=== PATIENT | male | born 1950 | race Caucasian/White ===

== ENCOUNTER → 2021-11-06 10:15 | Outpatient (BNVA) | payer MEDICARE, MEDICAID, SELFPAY | PROVIDERS: PCP Internal Medicine; Visit Provider Nurse Practitioner Family | DX: G20 Parkinson's disease (principal); R13.10 Dysphagia, unspecified; L98.9 Disorder of the skin and subcutaneous tissue, unspecified | CPT/HCPCS: 99212 ==

== ENCOUNTER → 2022-01-17 09:54 | Outpatient (BNVA) | payer MEDICARE, MEDICAID, SELFPAY | PROVIDERS: PCP Internal Medicine; Visit Provider Nurse Practitioner Family | DX: G20 Parkinson's disease (principal); R13.10 Dysphagia, unspecified; R49.8 Other voice and resonance disorders; Z79.899 Other long term (current) drug therapy | CPT/HCPCS: 99212 ==

== ENCOUNTER → 2022-04-24 10:17 | Outpatient (BNVA) | payer MEDICARE, MEDICAID, SELFPAY | PROVIDERS: PCP Internal Medicine; Visit Provider Nurse Practitioner Family | DX: G20 Parkinson's disease (principal); R13.10 Dysphagia, unspecified; R49.8 Other voice and resonance disorders; K59.00 Constipation, unspecified | CPT/HCPCS: 99212 ==

== ENCOUNTER → 2022-12-01 10:55 | Outpatient (BNVA) | payer MEDICARE, MEDICAID, SELFPAY | PROVIDERS: PCP Internal Medicine; Visit Provider Nurse Practitioner Family | DX: G20 Parkinson's disease (principal); R13.10 Dysphagia, unspecified; G47.19 Other hypersomnia | CPT/HCPCS: 99212 ==

== ENCOUNTER 2023-06-09 09:39 | Outpatient (AMB) | payer MEDICARE, MEDICAID, SELFPAY ==
--- NOTE | 2023-06-09 09:47 | MHC.OFFVIS ---
Intake Vital Signs 06/09/23 09:48 Height 5 ft 3 in Weight 151 lb 4 oz BMI 26.8 BP 124/66 Blood Pressure Location Rt brachial Position Sitting Pulse 78 Pulse Source Pulse Oximeter Pulse Oximetry (%) 96 Oxygen Delivery Method Room Air Intake Visit Reasons: 6m f/u balance/tremors - Conf t/CW Intake Note: Pt presents to the office today for a 6 month follow up balance/tremors. Pts sister states there are good days and bad days with his balance. Pts sister states that sometimes he freezes and is unable to walk/move his legs but other days he balance is great. Pt sister is worried that he has been having trouble opening his eyes and actually has to use his hands to open his eyelids. Accompanied by: Sister Allergies No Known Allergies Allergy (Verified 06/09/23 09:49) Medication List - Last Reconciled 06/09/23 by MONICA Tovar amlodipine 5 mg PO DAILY atorvastatin 10 mg PO BEDTIME carbidopa-levodopa 25-100 mg 1.5 tabs at 8:30, 1 tab at 12:30pm, 1.5 tabs at 4:30pm, 1 tab at 8:30pm PO 4 times a day; 90 days cholecalciferol (vitamin D3) 50 mcg PO DAILY docusate sodium (Colace) 100 mg PO DAILY PRN finasteride 5 mg PO DAILY hydrochlorothiazide 12.5 mg PO DAILY non-adherent bandage Clean right thigh wounds with NS, apply scant amt bacitracin, f/b adaptic and dry gauze dressing, and hypafix type tape. Change daily and prn selegiline HCl 5 mg PO BID 30 days tamsulosin 0.4 mg PO BEDTIME HPI HPI Comments History of Present Illness Details 73-yr-old male presents for f/u visit, accompanied by his sister, who helps w/ history. Pt has had 3 recent hospitalizations. - Syncopal episode while he was sitting having his toe nails cut. He was found to be bradykinetis. His BB was stopped. He has had a recent holter monitor- results pending. - Pt was discharged home yesterday- a passerby called 911 upon pt sitting on the sidewalk, pt had been attempting to walk to the store and became tired so sat down. He will have home VNA, PT. Pt's current PD medication regimen: CD-LD 25-100mg 1.5, 1, 1.5, 1 tab. Selegeline 5mg q 12 hrs. He takes his meds at different times depending on when he wakes up. His meds can wear off. He is Ind w/ ADLs. He has difficulty keeping his eyes open. His voice can be soft. He denies orthostativ lightheadedness or dizziness. No hallucinations. He is having daytime sleepiness. He has good and bad days w/ walking- can have freezing at times. He has a walker at home, does not use. [facility] Medical History Skin lesion Surgical History No pertinent past surgical history Family History Mother Sleep apnea Father Sleep apnea Parkinson disease (Updated 06/09/23 @ 09:58 by Lauryn Leone MA) Household Members: None Housing: Apartment Alcohol intake: current Alcohol intake frequency: does not drink Patient Tobacco Use Status: Never used Tobacco Review of Systems Const All systems reviewed & are unremarkable except as noted in HPI and below Physical Exam Vital Signs: Last Vital Signs Pulse 78 06/09/23 09:48 BP 124/66 06/09/23 09:48 Pulse Ox 96 06/09/23 09:48 Oxygen Delivery Method Room Air 06/09/23 09:48 BMI result Body Mass Index 26.8 Const General: cooperative and no acute distress Resp Effort & Inspection: normal respiratory effort and able to speak in complete sentences Neuro Other: General: A&O Expression: Marked hypomimia, mild drooling Voice: Marked hypophonia Tremor: No significant tremor Tone: BUE rigdity Dyskinesia: None FFM: Bradykinesia Foot taps: Bradykinesia Gait: Slow to stand, slight stoop, no arm swing, short steps w/ narrow base, steady. Psych: Pleasant affect, cooperative Cognition: Bradyphrenia, but responses appropriate? Assessment & Plan Assessment & Plan (1) Parkinson's disease without dyskinesia: Code(s): G20.A1 - Parkinson's disease without dyskinesia, without mention of fluctuations (2) Hypophonia: Code(s): R49.8 - Other voice and resonance disorders (3) Constipation: Code(s): K59.00 - Constipation, unspecified (4) Dysphagia: Code(s): R13.10 - Dysphagia, unspecified (5) Excessive daytime sleepiness: Code(s): G47.19 - Other hypersomnia Plan Will adjust PD regimen in an attempt to improve on time and reduce pill burden. Hold Sinemet 25-100mg to 1.5-1-1.5-1. Hold Selegiline 5mg bid. Trial CD-LD ER 50-200mg qid (approx every 4-5 hrs). Trial Rasagiline 1mg qd Concur w/ eye exam- though I suspect eyelid closing is d/t PD off-time. Colace prn constipation. PT as ordered. Encouraged pt to edgar walker when outside of home. Future consideration- sleep study, Neupro patch- pt would need daily nurse visits. Medications: New rasagiline 1 mg PO DAILY 90 days 90 tabs 1RF carbidopa-levodopa 50-200 mg ER divide evenly over waking hours 1 tab PO QID 90 days 360 tabs 1RF Discontinued carbidopa-levodopa 25-100 mg Discontinued Reason: Doctor's Order 1.5 tabs at 8:30, 1 tab at 12:30pm, 1.5 tabs at 4:30pm, 1 tab at 8:30pm PO 4 times a day; 90 days 450 tabs 3RF selegiline HCl Discontinued Reason: Doctor's Order 5 mg PO BID 30 days 60 caps 6RF Coding Level of Care Code Est Pt Level 4 (48209) Diagnoses Parkinson's disease without dyskinesia G20.A1 Hypophonia R49.8 Constipation K59.00 Dysphagia R13.10 Excessive daytime sleepiness G47.19
[2023-06-09 09:48] VITALS: BP 124/66; PULSE 78; O2SAT 96; BMI 26.8
== END 2023-06-09 10:51 | disposition home or self-care (01) ==
PROVIDERS: Visit Provider Nurse Practitioner Family
DX: G20.A1 Parkinson's disease without dyskinesia, without mention of fluctuations (principal); R49.8 Other voice and resonance disorders; K59.00 Constipation, unspecified; R13.10 Dysphagia, unspecified; G47.19 Other hypersomnia
CPT/HCPCS: 99214

== ENCOUNTER → 2023-06-09 09:39 | Outpatient (BNVA) | payer MEDICARE, MEDICAID, SELFPAY | PROVIDERS: Visit Provider Nurse Practitioner Family | DX: G20.A1 Parkinson's disease without dyskinesia, without mention of fluctuations (principal); R49.8 Other voice and resonance disorders; R13.10 Dysphagia, unspecified; G47.19 Other hypersomnia; K59.00 Constipation, unspecified | CPT/HCPCS: 99212 ==

== ENCOUNTER 2023-07-21 06:29 | Outpatient (REF) | payer MEDICARE, MEDICAID, SELFPAY ==
[2023-07-21 06:32] LABS: MANUAL DIFF FLAG NO
[2023-07-21 06:44] LABS: Basophils Absolute Auto 0.1 X10*3/uL (0.0-0.2); Basophils Percent Auto 0.6 % (0-2); Eosinophils Absolute Auto 0.2 X10*3/uL (0.0-0.4); Eosinophils Percent Auto 2.8 % (0-4); Hematocrit 42.3 % (42.0-52.0); Hemoglobin 14.5 g/dl (14.0-18.0); Imm Gran Abs Auto 0.06 X10*3/uL (0.00-0.03); Imm Gran Pct Auto 0.7 % (0.0-0.4); Lymphocytes Absolute Auto 2.3 X10*3/uL (1.2-4.9); Lymphocytes Percent Auto 28.7 % (20-40); Mean Corpuscular HGB Conc 34.3 g/dl (31.0-36.0); Mean Corpuscular Hemoglobin 30.8 pg (27.0-33.0); Mean Corpuscular Volume 89.8 fL (80.0-98.0); Mean Platelet Volume 9.8 fL (9.4-12.4); Monocytes Absolute Auto 0.9 X10*3/uL (0.1-1.2); Monocytes Percent Auto 11.5 % (2-11); Neutrophils Absolute Auto 4.5 x10*3/uL (2.0-8.3); Neutrophils Percent Auto 55.7 % (45-73); Platelet Count 318 X10*3/uL (160-400); Red Blood Count 4.71 X10*6/uL (4.60-5.80); Red Cell Distribution Width 12.5 % (11.0-16.0); White Blood Count 8.1 X10*3/uL (4.8-10.8)
[2023-07-21 07:16] LABS: Alanine Aminotransferase 6 U/L (0-40); Albumin Level 3.8 g/dL (3.5-5.0); Alkaline Phosphatase 88 U/L (39-117); Anion Gap 13 (12-20); Aspartate Amino Transferase 18 U/L (5-37); Bilirubin Total 0.4 mg/dL (0.0-1.0); Blood Urea Nitrogen 19 mg/dL (9-16); Calcium 9.3 mg/dL (8.4-10.2); Carbon Dioxide 24 mmol/L (22-29); Chloride 106 mmol/L (96-108); Estimated Glomerular Filt Rate > 60; Glucose Random 77 mg/dL (60-115); Potassium 3.5 mmol/L (3.3-5.1); Sodium 139 mmol/L (135-145); Total Protein 7.2 g/dL (6.5-8.0)
== END 2023-07-21 06:30 | disposition home or self-care (01) ==
LOC: HO.MMNH1L 06:29
PROVIDERS: Visit Provider Family Medicine
DX: G20.C Parkinsonism, unspecified (principal); E46 Unspecified protein-calorie malnutrition; Z91.81 History of falling
CPT/HCPCS: 36415; 80053; 85025

== ENCOUNTER 2023-07-27 10:36 | Outpatient (REF) | payer MEDICARE, MEDICAID, SELFPAY ==
[2023-07-27 06:23] LABS: MANUAL DIFF FLAG NO
[2023-07-27 06:48] LABS: Basophils Absolute Auto 0.1 X10*3/uL (0.0-0.2); Eosinophils Absolute Auto 0.1 X10*3/uL (0.0-0.4); Hematocrit 39.7 % (42.0-52.0); Hemoglobin 13.6 g/dl (14.0-18.0); Imm Gran Abs Auto 0.02 X10*3/uL (0.00-0.03); Imm Gran Pct Auto 0.3 % (0.0-0.4); Lymphocytes Absolute Auto 2.4 X10*3/uL (1.2-4.9); Lymphocytes Percent Auto 34.1 % (20-40); Mean Corpuscular HGB Conc 34.3 g/dl (31.0-36.0); Mean Corpuscular Hemoglobin 31.1 pg (27.0-33.0); Mean Corpuscular Volume 90.8 fL (80.0-98.0); Monocytes Absolute Auto 0.7 X10*3/uL (0.1-1.2); Monocytes Percent Auto 9.6 % (2-11); Neutrophils Absolute Auto 3.7 x10*3/uL (2.0-8.3); Platelet Count 316 X10*3/uL (160-400); Red Blood Count 4.37 X10*6/uL (4.60-5.80); Red Cell Distribution Width 12.4 % (11.0-16.0)
[2023-07-27 07:04] LABS: Anion Gap 15 (12-20); Blood Urea Nitrogen 21 mg/dL (9-16); Calcium 9.2 mg/dL (8.4-10.2); Carbon Dioxide 26 mmol/L (22-29); Chloride 101 mmol/L (96-108); Estimated Glomerular Filt Rate > 60; Glucose Random 72 mg/dL (60-115); Potassium 3.6 mmol/L (3.3-5.1); Sodium 138 mmol/L (135-145)
== END 2023-07-27 10:37 | disposition home or self-care (01) ==
LOC: HO.MMNH1L 10:36
PROVIDERS: Visit Provider Family Medicine
DX: G20.A1 Parkinson's disease without dyskinesia, without mention of fluctuations (principal); E46 Unspecified protein-calorie malnutrition; Z91.81 History of falling
CPT/HCPCS: 36415; 80048; 85025

== ENCOUNTER 2023-07-31 05:49 | Outpatient (REF) | payer MEDICARE, MEDICAID, SELFPAY ==
[2023-07-31 05:51] LABS: MANUAL DIFF FLAG NO
[2023-07-31 06:07] LABS: Basophils Absolute Auto 0.1 X10*3/uL (0.0-0.2); Eosinophils Absolute Auto 0.2 X10*3/uL (0.0-0.4); Eosinophils Percent Auto 2.2 % (0-4); Hematocrit 43.9 % (42.0-52.0); Imm Gran Abs Auto 0.02 X10*3/uL (0.00-0.03); Imm Gran Pct Auto 0.2 % (0.0-0.4); Lymphocytes Absolute Auto 3.1 X10*3/uL (1.2-4.9); Lymphocytes Percent Auto 35.5 % (20-40); Mean Corpuscular HGB Conc 34.2 g/dl (31.0-36.0); Mean Corpuscular Hemoglobin 31.2 pg (27.0-33.0); Mean Corpuscular Volume 91.3 fL (80.0-98.0); Mean Platelet Volume 9.8 fL (9.4-12.4); Monocytes Absolute Auto 0.9 X10*3/uL (0.1-1.2); Monocytes Percent Auto 10.6 % (2-11); Neutrophils Absolute Auto 4.4 x10*3/uL (2.0-8.3); Neutrophils Percent Auto 50.5 % (45-73); Platelet Count 297 X10*3/uL (160-400); Red Blood Count 4.81 X10*6/uL (4.60-5.80); Red Cell Distribution Width 12.3 % (11.0-16.0); White Blood Count 8.7 X10*3/uL (4.8-10.8)
[2023-07-31 06:34] LABS: Anion Gap 14 (12-20); Blood Urea Nitrogen 16 mg/dL (9-16); Calcium 9.5 mg/dL (8.4-10.2); Carbon Dioxide 27 mmol/L (22-29); Chloride 104 mmol/L (96-108); Estimated Glomerular Filt Rate > 60; Glucose Random 85 mg/dL (60-115); Potassium 3.6 mmol/L (3.3-5.1); Sodium 141 mmol/L (135-145)
== END 2023-07-31 05:50 | disposition home or self-care (01) ==
LOC: HO.MMNH1L 05:49
PROVIDERS: Visit Provider Family Medicine
DX: G20.A1 Parkinson's disease without dyskinesia, without mention of fluctuations (principal); R27.8 Other lack of coordination
CPT/HCPCS: 36415; 80048; 85025

== ENCOUNTER 2023-08-03 07:27 | Outpatient (REF) | payer MEDICARE, MEDICAID, SELFPAY ==
[2023-08-03 06:32] LABS: MANUAL DIFF FLAG NO
[2023-08-03 07:01] LABS: Basophils Absolute Auto 0.1 X10*3/uL (0.0-0.2); Basophils Percent Auto 0.8 % (0-2); Eosinophils Absolute Auto 0.1 X10*3/uL (0.0-0.4); Eosinophils Percent Auto 2.2 % (0-4); Hematocrit 40.1 % (42.0-52.0); Hemoglobin 13.4 g/dl (14.0-18.0); Imm Gran Abs Auto 0.03 X10*3/uL (0.00-0.03); Imm Gran Pct Auto 0.5 % (0.0-0.4); Lymphocytes Absolute Auto 1.9 X10*3/uL (1.2-4.9); Lymphocytes Percent Auto 30.6 % (20-40); Mean Corpuscular HGB Conc 33.4 g/dl (31.0-36.0); Mean Corpuscular Hemoglobin 30.7 pg (27.0-33.0); Mean Corpuscular Volume 91.8 fL (80.0-98.0); Mean Platelet Volume 9.9 fL (9.4-12.4); Monocytes Absolute Auto 0.8 X10*3/uL (0.1-1.2); Neutrophils Absolute Auto 3.4 x10*3/uL (2.0-8.3); Neutrophils Percent Auto 53.9 % (45-73); Platelet Count 250 X10*3/uL (160-400); Red Blood Count 4.37 X10*6/uL (4.60-5.80); Red Cell Distribution Width 12.6 % (11.0-16.0); White Blood Count 6.3 X10*3/uL (4.8-10.8)
[2023-08-03 07:08] LABS: Anion Gap 14 (12-20); Blood Urea Nitrogen 17 mg/dL (9-16); Calcium 8.9 mg/dL (8.4-10.2); Carbon Dioxide 26 mmol/L (22-29); Chloride 102 mmol/L (96-108); Estimated Glomerular Filt Rate > 60; Glucose Random 83 mg/dL (60-115); Potassium 3.4 mmol/L (3.3-5.1); Sodium 139 mmol/L (135-145)
== END 2023-08-03 07:28 | disposition home or self-care (01) ==
LOC: HO.MMNH1L 07:27
PROVIDERS: Visit Provider Family Medicine
DX: G30.9 Alzheimer's disease, unspecified (principal); E46 Unspecified protein-calorie malnutrition; Z91.81 History of falling
CPT/HCPCS: 36415; 80048; 85025

== ENCOUNTER 2024-01-08 08:28 | Outpatient (AMB) | payer MEDICARE, MEDICAID, SELFPAY ==
--- NOTE | 2024-01-08 07:42 | MHC.OFFVIS ---
Vital Signs 01/08/24 08:50 Height 5 ft 3 in Weight 142 lb BMI 25.2 BP 112/74 Blood Pressure Location Rt brachial Position Sitting Pulse 63 Pulse Source Pulse Oximeter Pulse Oximetry (%) 96 Oxygen Delivery Method Room Air Intake Visit Reasons: 4 mo f/u Balance/Tremors-CONF Intake Note: Patient presents for four month follow up tremors Allergies No Known Allergies Allergy (Verified 01/08/24 08:55) HPI Comments Details: 73-yr-old male presents for f/u visit of Parkinson's. Pt is accompanied by his sister, who helps w/ history. Pt reports the following interval medical history changes since last visit here in May 2023: Pt's sister reports on October 16, 2023- pt had fallen in his apartment and was on the floor x's several hrs as he misdialed his siter's was dx'd w/ rhabdomylosis and PNA. He was admitted to [facility], and was discharged to [facility] where he had rehab and now is in LTC. 3 weeks ago, had hospitalization for PNA and parainfluenze. Since, pt has had recent fall and hit his head, had ER eval, head CT was normal. Pt's sister notes that pt does seem to be doing better now that he is taking his medications more regularly, however his doses are spread out every 6 hrs now, and he still has many PD s/s. He is taking a lot of salt w/ his meals- he feels this will reduce his urinary frequency.. He is scheduled for right hand surgery to help w/ finger contracture/posturing. w/ Dr Garcia at [facility]. Pt's current PD medication regimen: Rasagiline 1mg qd. CD-LD ER 50-200mg 1 tab q 6 hours (12am, 6am, 12pm, 6pm). Meal times are at 8:30, 12:30, 5:30. Pt reports: ADL's: He states he does not need help. But sister states he does need some help. Swallowing: on dysphagia diet, sister has cleared him to drink thin liquids as he does not like the thickened liquids. He does brush his teeth bid. Sister is trying to set up dentist appt. Cough: denies Drooling: does drool, this is also why he takes salt- he states Orthostatic lightheadedness: not noticed Constipation: denies Urinary symptoms: urinary frequency/urgency, states he uses the bathroom every 4 hours when he needs to. Has BPH. Tremor: denies Dyskinesia: denies Stiffness: Yes. Can have difficulty getting out of certain chairs. Gait changes: states he has not been walking as much Freezing: his sister notices this Falls: has had falls Mood: alright Hallucinations: denies Memory: LTM is better than STM. pt feels he is slower. Sleep: tends to sleep during the day- he has always ahd an erratic sleep schedule- he is often tired. Exercise: denies any usual exercise. [facility] Medical History Skin lesion Surgical History No pertinent past surgical history Family History Mother Sleep apnea Father Sleep apnea Parkinson disease Social History Household Members: None Housing: Apartment Alcohol intake: current Alcohol intake frequency: does not drink Patient Tobacco Use Status: Never used Tobacco Physical Exam Vital Signs: Last Vital Signs Pulse 63 01/08/24 08:50 BP 112/74 01/08/24 08:50 Pulse Ox 96 01/08/24 08:50 Oxygen Delivery Method Room Air 01/08/24 08:50 BMI result Body Mass Index 25.2 Const General: cooperative and no acute distress Resp Effort & Inspection: normal respiratory effort and able to speak in complete sentences Neuro Other: General: A&O x's 3, w/ some STM lapses and marked bradyphrenia Expression: Marked decreased expression and blink Voice: marked hypophonia, at times pt can project louder and more clearly for a few words. Tremor: Very mild RUE postural tremor Tone: BUE rigidity w/ right hand posturing/contracture. Dyskinesia: None FFM: Marked bardykinesia Foot taps: Marked bradykinesia Gait: Slow to stand, stoop in shoulder, but slight retropulsion, no arm swing, short steps w/ very low floor clearance. Psych: Pleasant and cooperative. Assessment & Plan Assessment & Plan (1) Parkinson's disease without dyskinesia: Code(s): G20.A1 - Parkinson's disease without dyskinesia, without mention of fluctuations Category: Medical (2) Hypophonia: Code(s): R49.8 - Other voice and resonance disorders Category: Medical (3) Dysphagia: Code(s): R13.10 - Dysphagia, unspecified Category: Medical (4) Contracture of right hand: Code(s): M24.541 - Contracture, right hand Category: Medical (5) Falls: Code(s): W19.XXXA - Unspecified fall, initial encounter Category: Medical Plan Increase CD-LD ER 50-200mg from 1 tab po q 6hrs to 1 tab po 5 x's per day at 7:30am, 11:30am, 4:30pm, 8:30pm, and 12am. (CD-LD should be taken at least 30-45 minutes prior to protein intake to optimize absorption). - in hopes this reduces hypophonia, bradyphrenia, bradykineisa, rigidity. And improves right hand mobility. - Reviewed common s/e's of increasing CD-LD including but not limited to- GI upset, orthostatic hypotension or lightheadedness, dyskinesias, hallucinations. Continue Rasagiline 1mg qd. Continue dysphagia diet w/ thin liquids. Encouraged pt to ensure good oral hygiene. Dental appt when able. Follow-up w/ Dr Howe, orthopedic hand specialist, as scheduled. Previous PD trials- CD-LD IR 25-100mg and Selegiline 5mg bid- ineffective, marked off-times. Future considerations- trying Rytary, adjuncting w/ neupro patch or dopamine agonist, We will f/u w/ pt/pt's sister in 2-3 weeks to check on pt's status before he undergoes right hand surgery. F/u in clinic in 6 months or sooner prn. Coding Level of Care Code Est Pt Level 4 (66409) Complex EM visit Add On G2211 Diagnoses Parkinson's disease without dyskinesia G20.A1 Hypophonia R49.8 Dysphagia R13.10 Contracture of right hand M24.541 Falls W19.XXXA
[2024-01-08 08:50] VITALS: BP 112/74; PULSE 63; O2SAT 96; BMI 25.2
== END 2024-01-08 09:54 | disposition home or self-care (01) ==
PROVIDERS: PCP Internal Medicine; Visit Provider Nurse Practitioner Family
DX: G20.A1 Parkinson's disease without dyskinesia, without mention of fluctuations (principal); R49.8 Other voice and resonance disorders; R13.10 Dysphagia, unspecified; M24.541 Contracture, right hand; R29.6 Repeated falls
CPT/HCPCS: 99214; G2211

== ENCOUNTER → 2024-01-08 08:28 | Outpatient (BNVA) | payer MEDICARE, MEDICAID, SELFPAY | PROVIDERS: PCP Internal Medicine; Visit Provider Nurse Practitioner Family | DX: G20.A1 Parkinson's disease without dyskinesia, without mention of fluctuations (principal); R49.8 Other voice and resonance disorders; R13.10 Dysphagia, unspecified; M24.541 Contracture, right hand; Z91.81 History of falling | CPT/HCPCS: 99212 ==

== ENCOUNTER 2024-05-21 15:29 | Emergency (ER) | payer MEDICARE, MEDICAID, SELFPAY ==
--- NOTE | ~2024-05-21 | CT_ITS ---
EXAMINATION CT HEAD WITHOUT CONTRAST CT CERVICAL SPINE WITHOUT CONTRAST CLINICAL INFORMATION: Fall, Parkinson's COMPARISON: None TECHNIQUE: CT of the head was performed without intravenous contrast. Reformatted axial, coronal, and sagittal images were reviewed. Then, multidetector CT of the cervical spine was performed without intravenous contrast. Reformatted axial, coronal and sagittal images were reviewed. This CT examination was performed using dose optimization techniques as appropriate, variously including the following: *Automated exposure control *Adjustment of mA and/or kV according to patient size (this includes techniques or standardized protocols for targeted exams where dose is matched to indication/reason for exam; i.e. extremities or head) *Use of iterative reconstruction technique DLP: 1105 mGy-cm FINDINGS: HEAD: No intracranial hemorrhage, extra-axial fluid collection, or midline shift is identified. Wise-white matter differentiation is preserved. Prominence of the cerebral sulci with commensurate ventriculomegaly consistent with age-related cerebral volume loss. Periventricular white matter hypoattenuation consistent with chronic small vessel ischemic disease. Basal cisterns are within normal limits. Posterior fossa arachnoid cysts. Paranasal sinuses are clear. Mastoid air cells and middle ear cavities are clear. No acute calvarial fractures. CERVICAL SPINE: There is no fracture, malalignment or prevertebral soft tissue abnormality seen in the cervical spine. There is no abnormal widening of the predental space, separation of the lateral masses of C1 or facet joint distraction. Vertebral body and intervertebral disc height are normal. Multilevel degenerative changes are present throughout the cervical spine resulting in varying levels of neural foraminal stenosis, worst at C3-4. The visualized portions of the lung parenchyma is unremarkable. CT/CT cervical spine wo IV con IMPRESSION: CT HEAD: 1. No acute intracranial abnormality. 2. Chronic small vessel ischemic disease and age-related cerebral volume loss. 3. Posterior fossa arachnoid cyst. CT CERVICAL SPINE: 1. No acute fracture or malalignment of the cervical spine. 2. Multilevel degenerative changes, worst at C3-4. Electronically signed by: Benja Arroyo DO 05/21/2024 05:55 PM EDT
[2024-05-21 15:33] VITALS: BP 96/68; PULSE 70; O2SAT 96
[2024-05-21 15:37] VITALS: BP 105/69; PULSE 63; RESP 18; O2SAT 93; BMI 20.8
--- NOTE | 2024-05-21 16:51 | ED_ITS ---
HPI - Fall General Chief Complaint: Fall Stated Complaint: fall Time Seen by Provider: 05/21/24 16:19 Source: family and EMS Mode of arrival: EMS Limitations: other ( fairly advanced Parkinson's) History of Present Illness ED Provider: Dr. Joana Palencia HPI Narrative: patient comes to the emergency room via ambulance from a longterm, [facility]. According to the patient's sister who is at bedside, patient had an unwitnessed fall. at baseline, patient is able to speak but very softly, mostly answering yes no questions. Accordin to the patient's sister, patient is supposed to get up with his walker and most of the time he does not use it. Also, seems that today his bathroom was clogged and the water was spilling, unclear if the floor was Still wet when he Fell. Patient denies headache neck pain chest pain shortness of breath hip pain or lower extremity pain Related Data Home Medications ?Medication ?Instructions ?Recorded ?Confirmed finasteride 5 mg tablet 5 mg PO DAILY 11/06/21 06/09/23 tamsulosin 0.4 mg capsule 0.4 mg PO BEDTIME 11/06/21 06/09/23 cholecalciferol (vitamin D3) 50 50 mcg PO DAILY 01/17/22 06/09/23 mcg (2,000 unit) capsule docusate sodium 100 mg capsule 100 mg PO DAILY PRN 12/01/22 06/09/23 (Colace) amlodipine 5 mg tablet 5 mg PO DAILY 06/09/23 06/09/23 atorvastatin 10 mg tablet 10 mg PO BEDTIME 06/09/23 06/09/23 hydrochlorothiazide 12.5 mg capsule 12.5 mg PO DAILY 06/09/23 06/09/23 acetaminophen 325 mg capsule 325 mg PO QID PRN 01/08/24 bisacodyl 10 mg rectal suppository 10 mg UT DAILY PRN 01/08/24 trazodone 50 mg tablet 25 mg PO DAILY 01/08/24 Previous Rx's ?Medication ?Instructions ?Recorded non-adherent bandage 3 X 3 #30 ea 11/06/21 carbidopa ER 50 mg-levodopa 200 mg 1 tab PO QID 90 days #360 tabs 06/09/23 tablet,extended release rasagiline 1 mg tablet 1 mg PO DAILY 90 days #90 tabs 11/30/23 Allergies Allergy/AdvReac Type Severity Reaction Status Date / Time Beta-Blockers Allergy Unknown Verified 05/21/24 15:38 (Beta-Adrenergic Bloc Tetanus Vaccines and Toxoid Allergy Unknown Verified 05/21/24 15:38 Review of Systems Review of Systems: Yes Other ( review of systems limited due to patient's advanced Parkinson's) REPLACED BY [facility] Past Medical History Medical History (Updated 05/21/24 @ 20:35 by Joana Palencia MD) Parkinson's disease Skin lesion Surgical History No pertinent past surgical history Family History Family History Mother Sleep apnea Father Sleep apnea Parkinson disease Social History Social History Household Members: None Housing: Apartment Alcohol intake: current Alcohol intake frequency: does not drink Patient Tobacco Use Status: Never used Tobacco Advance Directives: Yes Advance Directives on File: Yes Advance Directives Date on File: 05/21/24 Physical Exam Vital Signs: Vital Signs: Last Vital Signs Temp 98.8 F 05/21/24 18:18 Pulse 73 05/21/24 18:18 Resp 18 05/21/24 18:18 BP 124/80 05/21/24 18:18 Pulse Ox 94 05/21/24 18:18 O2 Del Method Room Air 05/21/24 18:18 BMI result Body Mass Index 20.8 Const: Other: Appearance: Alert. able to follow commands Eyes: Pupils equal, round and reactive to light. ENT: Pharynx normal. Neck: Normal inspection. Neck supple. No lymph nodes noted. No crepitus CVS: Normal heart rate and rhythm. Pulses normal. Normal S1 and S2 Respiratory: No respiratory distress. Breath sounds normal. No Wheezing. No rales Abdomen: Soft and nontender. No rigidity. No distention. Skin: Skin warm and dry. Normal skin color. Normal skin turgor. Extremities: No lower extremity edema. able to flex and extend upper and lower extremities and hips, denies any pain. Neuro: Patient understands, and still has difficulty moving due to Parkinson's. difficult to assess cranial nerves. Psych: calm, cooperative Course Course Course Narrative: Patient's urine and CT scans pending Medical Decision Making Medical Decision Making [facility] Narrative: my interpretation of CT scan, no intracranial bleed, no obvious CT scan abnormality of the cervical spine. - Urinalysis negative for UTI. - Per patient's history, patient is in his mental baseline. Differential Diagnosis Differential Diagnoses: The differential diagnosis associated with the presentation includes ( Contusion, concussion, abrasion, intracranial bleed) Admission/Observation Consideration of admission/observation: Escalation of care including admission/observation considered ( given patient's initial presentation, observation) Lab Data [facility] Lab Attestation statement: I reviewed the patient's lab results. Labs: Lab Results 05/21/24 05/21/24 Range/Units 18:35 19:00 Urine Color Yellow Urine Appearance Clear Urine pH 7.5 (5.0-9.0) Ur Specific [place] 1.015 (1.005-1.025) Urine Protein Negative (Neg-Trace) mg/dL Urine Glucose (UA) Negative (Negative) mg/dL Urine Ketones Negative (Negative) mg/dL Urine Blood Moderate (2+) H (Negative) Urine Nitrite Negative (Negative) Ur Leukocyte Esterase Negative (Negative) Urine RBC >20 H (0-2) /HPF Urine WBC 6-10 H (0-5) /HPF Ur Squamous Epith Cells 0-2 (0-2) /HPF Urine Bacteria None Seen (None Seen) Hyaline Casts 0-2 (0-2) /LPF Influenza Type A (PCR) NEGATIVE (Negative) Influenza Type B (PCR) NEGATIVE (Negative) RSV RNA Qual (PCR) NEGATIVE (Negative) SARS-CoV-2 RNA (RT-PCR) NEGATIVE (Negative) Independent Interpretation I performed an independent interpretation of an: CT Scan Radiology Impression Discussion of test interpretation with radiology: I have reviewed the radiologist's reading. Radiologist Impression: HEAD: No intracranial hemorrhage, extra-axial fluid collection, or midline shift is identified. Wise-white matter differentiation is preserved. Prominence of the cerebral sulci with commensurate ventriculomegaly consistent with age-related cerebral volume loss. Periventricular white matter hypoattenuation consistent with chronic small vessel ischemic disease. Basal cisterns are within normal limits. Posterior fossa arachnoid cysts. Paranasal sinuses are clear. Mastoid air cells and middle ear cavities are clear. No acute calvarial fractures. CERVICAL SPINE: There is no fracture, malalignment or prevertebral soft tissue abnormality seen in the cervical spine. There is no abnormal widening of the predental space, separation of the lateral masses of C1 or facet joint distraction. Vertebral body and intervertebral disc height are normal. Multilevel degenerative changes are present throughout the cervical spine resulting in varying levels of neural foraminal stenosis, worst at C3-4. The visualized portions of the lung parenchyma is unremarkable. CT/CT head/brain wo IV con IMPRESSION: CT HEAD: 1. No acute intracranial abnormality. 2. Chronic small vessel ischemic disease and age-related cerebral volume loss. 3. Posterior fossa arachnoid cyst. CT CERVICAL SPINE: 1. No acute fracture or malalignment of the cervical spine. 2. Multilevel degenerative changes, worst at C3-4. Critical Care Time Critical Care Time Critical Care Time: Yes Total Critical Care Time: 30 Attestation: I have personally provided critical care time. Time includes review of lab data, radiology results, discussion with consultants, and monitoring for potential decompensation. Intervention performed as documented. Discharge Plan Discharge Clinical Impression: Fall, Contusion Patient Disposition: Home, Self-Care Instructions: Fall Prevention (ED) Additional Instructions: Please follow-up with your primary care physician tomorrow. If you have any worsening or new symptoms, please return to the emergency room or call 911 Prescriptions: No Action rasagiline 1 mg tablet 1 mg PO DAILY 90 Days Qty: 90 1RF cholecalciferol (vitamin D3) 50 mcg (2,000 unit) capsule 50 mcg PO DAILY docusate sodium [Colace] 100 mg capsule 100 mg PO DAILY PRN finasteride 5 mg tablet 5 mg PO DAILY tamsulosin 0.4 mg capsule 0.4 mg PO BEDTIME (DME) non-adherent bandage 3 X 3 bandage See Rx Instructions .Route Qty: 30 1RF Rx Instructions: Clean right thigh wounds with NS, apply scant amt bacitracin, f/b adaptic and dry gauze dressing, and hypafix type tape. Change daily and prn amlodipine 5 mg tablet 5 mg PO DAILY hydrochlorothiazide 12.5 mg capsule 12.5 mg PO DAILY atorvastatin 10 mg tablet 10 mg PO BEDTIME carbidopa-levodopa 50-200 mg tablet extended release 1 tab PO QID 90 Days Qty: 360 1RF Rx Instructions: divide evenly over waking hours acetaminophen 325 mg capsule 325 mg PO QID PRN bisacodyl 10 mg suppository 10 mg UT DAILY PRN trazodone 50 mg tablet 25 mg PO DAILY Print Language: Belarusian
[2024-05-21 17:15] VITALS: BP 123/80; PULSE 73; RESP 18; TEMP 36.3; O2SAT 95
--- NOTE | 2024-05-21 17:41 | PC.NURSE ---
urine specimen needed. Urinal placed so patient could void- patient unable to void. Attempted to straight cath patient- patient screaming stating stop it hurts. Jain cath removed. Sister stating he is very difficult to straight cath. Condom cath placed. Provider aware
[2024-05-21 18:18] VITALS: BP 124/80; PULSE 73; RESP 18; TEMP 37.1; O2SAT 94
[2024-05-21 19:06] LABS: Appearance Urine Clear; Color Urine Yellow; Glucose Urine UA Negative (Negative); Leukocyte Esterase Urine Negative (Negative); Nitrite Urine Negative (Negative); PH 7.5 (5.0-9.0); Specific Gravity - Urine 1.015 (1.005-1.025); UMIC TRIGGER UACC YES; Urine Blood Moderate (2+) (Negative); Urine Ketones Negative (Negative); Urine Protein Negative (Neg-Trace)
[2024-05-21 19:16] LABS: Influenza A PCR NEGATIVE (Negative); Influenza B PCR NEGATIVE (Negative); Resp Syncy Virus RNA Qual PCR NEGATIVE (Negative); SARS COV2 PCR INHOUSE NEGATIVE (Negative)
[2024-05-21 20:05] LABS: Bacteria Urine None Seen (None Seen); Hyaline Casts Urine 0-2 /LPF (0-2); RBC Urine >20 /HPF (0-2); Squamous Epithelial Cell Urine 0-2 /HPF (0-2); UACC Culture Trigger YES
[2024-05-21 20:57] VITALS: BP 142/87; PULSE 76; RESP 16; TEMP 36.6; O2SAT 95
--- NOTE | 2024-05-21 21:15 | PC.NURSE ---
Attempted to call Nalini Sanford. Staff member Harmony tried giving the call to the nurse x2 and ultimately ended up hanging up the phone on their end prior to report being given.
[2024-05-21 21:17] VITALS: BP 142/87; PULSE 76; RESP 16; TEMP 36.6; O2SAT 95
== END 2024-05-21 21:19 | disposition home or self-care (01) ==
PROVIDERS: Emergency Provider Emergency Medicine; PCP Internal Medicine
DX: T14.8XXA Other injury of unspecified body region, initial encounter (principal); W18.30XA Fall on same level, unspecified, initial encounter; G20.A1 Parkinson's disease without dyskinesia, without mention of fluctuations; N40.0 Benign prostatic hyperplasia without lower urinary tract symptoms; Y93.9 Activity, unspecified; Y92.122 Bedroom in nursing home as the place of occurrence of the external cause; Y99.9 Unspecified external cause status; Z03.818 Encounter for observation for suspected exposure to other biological agents ruled out
CPT/HCPCS: 0241U; 51701; 70450; 72125; 81001; 87086; 99284

== ENCOUNTER 2024-08-05 13:40 | Outpatient (AMB) | payer MEDICARE, MEDICAID, SELFPAY ==
--- NOTE | 2024-08-05 13:43 | MHC.OFFVIS ---
Vital Signs 08/05/24 13:49 BP 90/60 Blood Pressure Location Rt brachial Position Sitting Pulse 69 Pulse Source Pulse Oximeter Pulse Oximetry (%) 96 Oxygen Delivery Method Room Air Intake Visit Reasons: f/u appt Qa Automation Architect Required: No Allergies Beta-Blockers (Beta-Adrenergic Bloc Allergy (Verified 08/05/24 13:48) Unknown Tetanus Vaccines and Toxoid Allergy (Verified 08/05/24 13:48) Unknown Do you need a note to return to daycare/school/sports/work: No HPI Comments Details: 74-yr-old male presents for f/u visit of Parkinson's. Pt is accompanied by his sister, who helps w/ history. He did undergo right hand surgical repair in January, which was helpful, however with time, the hand is starting to contract again. He does not seem to be using his right hand support much. His sister notes that he tried the CD-LD Er 50-200mg 5 x's per day- but facility thought it made him too sleepy so they decreased it back to QID. Pt reports the following interval medical history changes since last visit here in May 2023: Pt's sister reports on October 16, 2023- pt had fallen in his apartment and was on the floor x's several hrs as he misdialed his siter's was dx'd w/ rhabdomylosis and PNA. He was admitted to [facility], and was discharged to [facility] where he had rehab and now is in LTC. 3 weeks ago, had hospitalization for PNA and parainfluenze. Since, pt has had recent fall and hit his head, had ER eval, head CT was normal. Pt's sister notes that pt does seem to be doing better now that he is taking his medications more regularly, however his doses are spread out every 6 hrs now, and he still has many PD s/s. He is taking a lot of salt w/ his meals- he feels this will reduce his urinary frequency.. He is scheduled for right hand surgery to help w/ finger contracture/posturing. w/ Dr Garcia at [facility]. Pt's current PD medication regimen: Rasagiline 1mg qd. CD-LD ER 50-200mg 1 tab q 6 hours (12am, 6am, 12pm, 6pm). Meal times are at 8:30, 12:30, 5:30. Pt reports: ADL's: He does need some help. Swallowing: on dysphagia diet, sister has cleared him to drink thin liquids as he does not like the thickened liquids. He does brush his teeth bid. Sister is trying to set up dentist appt. Voice: very soft voice, almost just mouthing words. Cough: denies Drooling: does drool Orthostatic lightheadedness: not noticed Constipation: denies Urinary symptoms: urinary frequency/urgency better on Tremor: denies Dyskinesia: denies Stiffness: Yes. Can have difficulty getting out of certain chairs. Gait changes: Freezing: his sister notices this Falls: none recent Mood: alright Hallucinations: denies Memory: LTM is better than STM. pt feels he is slower. Sleep: sleeps a lot Exercise: denies any usual exercise. [facility] Medical History Parkinson's disease Skin lesion Surgical History No pertinent past surgical history Family History Mother Sleep apnea Father Sleep apnea Parkinson disease Social History Household Members: None Housing: Apartment Alcohol intake: current Alcohol intake frequency: does not drink Patient Tobacco Use Status: Never used Tobacco Advance Directives Date on File: 05/21/24 Physical Exam Vital Signs: Last Vital Signs Pulse 69 08/05/24 13:49 BP 90/60 08/05/24 13:49 Pulse Ox 96 08/05/24 13:49 Oxygen Delivery Method Room Air 08/05/24 13:49 Const General: cooperative and no acute distress Resp Effort & Inspection: normal respiratory effort and able to speak in complete sentences Neuro Other: General: A&O x's 3, w/ some STM lapses and marked bradyphrenia. Mild intermittent right lip drooling. Expression: Marked decreased expression and blink Voice: marked hypophonia, at times pt can project louder and more clearly for a few words. Tremor: Very mild RUE postural tremor Tone: BUE rigidity w/ right hand posturing/contracture. Dyskinesia: None FFM: Marked bradykinesia Foot taps: Marked bradykinesia Posture: Stooped Gait: Slow to stand, stoop in shoulder, no arm swing, short steps w/ very low floor clearance. Psych: Pleasant and cooperative. Assessment & Plan Assessment & Plan (1) Parkinson's disease without dyskinesia: Code(s): G20.A1 - Parkinson's disease without dyskinesia, without mention of fluctuations Category: Medical (2) Hypophonia: Code(s): R49.8 - Other voice and resonance disorders Category: Medical (3) Dysphagia: Code(s): R13.10 - Dysphagia, unspecified Category: Medical (4) Contracture of right hand: Code(s): M24.541 - Contracture, right hand Category: Medical Plan Discussed increasing total daily levodopa dose, adjusting CD-LD to Rytary, or adjunct eating with a dopamine agonist tx, however, sister feels that patient is doing well overall in his LTC setting. We will request FISHING ROD ASSEMBLER eval and treat for hypophonia. Patient may benefit from using a voice interventions such as a SpeechVive tx device- note patient's voicemail need to be a bit stronger to get best benefit out of a device like this. However, if FISHING ROD ASSEMBLER tx alone is not effective in improving voice strength, we could consider trialing giving CD-LD IR 25-100mg 1/2-1 tab prior to FISHING ROD ASSEMBLER treatments. Continue CD-LD ER 50-200mg from 1 tab p.o. q.i.d. at 7:30am, 11:30am, 4:30pm, 8:30pm.. (CD-LD should be taken at least 30-45 minutes prior to protein intake to optimize absorption). Continue Rasagiline 1mg qd. Continue dysphagia diet w/ thin liquids. Encouraged pt to ensure good oral hygiene. Dental appt when able. Previous PD trials- CD-LD IR 25-100mg and Selegiline 5mg bid- ineffective, marked off-times. Future considerations- trying Rytary, adjuncting w/ neupro patch or dopamine agonist, F/u in clinic in 6 months or sooner prn. Coding Level of Care Code Est Pt Level 4 (21996) Diagnoses Parkinson's disease without dyskinesia G20.A1 Hypophonia R49.8 Dysphagia R13.10 Contracture of right hand M24.541
[2024-08-05 13:49] VITALS: BP 90/60; PULSE 69; O2SAT 96
== END 2024-08-05 14:41 | disposition home or self-care (01) ==
PROVIDERS: PCP Internal Medicine; Visit Provider Nurse Practitioner Family
DX: G20.A1 Parkinson's disease without dyskinesia, without mention of fluctuations (principal); R49.8 Other voice and resonance disorders; R13.10 Dysphagia, unspecified; M24.541 Contracture, right hand
CPT/HCPCS: 99214

== ENCOUNTER → 2024-08-05 13:40 | Outpatient (BNVA) | payer MEDICARE, MEDICAID, SELFPAY | PROVIDERS: PCP Internal Medicine; Visit Provider Nurse Practitioner Family | DX: G20.A1 Parkinson's disease without dyskinesia, without mention of fluctuations (principal); R49.8 Other voice and resonance disorders; R13.10 Dysphagia, unspecified; M24.541 Contracture, right hand | CPT/HCPCS: 99212 ==

== ENCOUNTER 2025-01-30 08:57 | Outpatient (AMB) | payer MEDICARE, MEDICAID, SELFPAY ==
--- NOTE | 2025-01-30 08:39 | A.OFFVIS_ITS ---
Intake Visit Reasons: Med management Intake Note: Patient presents as a telehealth visit today with his sister for Parkinson's. Accompanied by: Sister Allergies Beta-Blockers (Beta-Adrenergic Bloc Allergy (Verified 01/30/25 08:39) Unknown Tetanus Vaccines and Toxoid Allergy (Verified 01/30/25 08:39) Unknown HPI Comments Details: 74-yr-old male presents for f/u televideo visit of Parkinson's. Pt is accompanied by his sister and nurse Lorin, who helps w/ history. Patient and sister requested sooner appointment to address worsening bradykinesia, hypophonia. At 1 point he was unable to transfer without a Aubrie lift. However, he has been working with PT more recently, and he has returned to transfers with the assist of 1-2. Is typically using a wheelchair at this point, as he is not able to use the walker at this time. He is compliant with CD-LD Er 50-200mg 4 times per day and rasagiline 1 mg daily. Patient and sister were hesitant to trial an alternate at last visit, due to worry for side effects such as hallucinations-as patient's father had had hallucinations on Rytary. However, today patient's sister would like to discuss trying Rytary. [facility] Medical History Parkinson's disease Skin lesion Surgical History No pertinent past surgical history Family History Mother Sleep apnea Father Sleep apnea Parkinson disease Social History Household Members: None Housing: Apartment Alcohol intake: current Alcohol intake frequency: does not drink Patient Tobacco Use Status: Never used Tobacco Advance Directives Date on File: 05/21/24 Physical Exam Const General: cooperative and no acute distress Orientation/consciousness: patient oriented x3 Resp Effort & Inspection: normal respiratory effort and able to speak in complete sentences Neuro Other: Marked decreased facial expression blink Marked hypophonia Marked bradyphrenia Madan generalized bradykinesia Patient was sitting upright throughout visit General: patient oriented x3 Cognition (Neuro): normal cognition Psych Appearance: grossly normal Attitude: cooperative Telehealth Telehealth Telehealth Platform: [facility] Location of provider rendering services: practice address Location of patient: address on file Patient Identification confirmed using: Name, : Yes Telehealth method: video Patient verbally consented to treatment: Yes Patient verbally consented to billing insurance company: Yes Patient informed of any privacy concerns related to visit: Yes Minutes spent on Phone/Video with Pt.: 15 Assessment & Plan Assessment & Plan (1) Parkinson's disease without dyskinesia: Code(s): G20.A1 - Parkinson's disease without dyskinesia, without mention of fluctuations Category: Medical (2) Hypophonia: Code(s): R49.8 - Other voice and resonance disorders Category: Medical (3) Dysphagia: Code(s): R13.10 - Dysphagia, unspecified Category: Medical (4) Contracture of right hand: Code(s): M24.541 - Contracture, right hand Category: Medical Plan Will convert carbidopa levodopa ER to Rytary based on previous higher dose of carbidopa levodopa ER 50-200mg dosing at 5 x's per day- thus, converting optimize daily levodopa IR dose from 1000 mg to levodopa ER in Rytary 1960mg per day. Start Rytary 61.25-245 mg ER cap, 2 caps 4 times per day * May open capsule and administer in applesauce or in vehicle choice. * Rytary/CD-LD should be taken at least 30-45 minutes prior to protein intake to optimize absorption. * When Rytary available, discontinue CD-LD ER 50-200mg from 1 tab p.o. q.i.d. at 7:30am, 11:30am, 4:30pm, 8:30pm. * Lorin, nurse, took verbal order, and well really recommendations to patient's primary care provider in detention facility. They will process prior authorization request, however advised they can reach out to us if they have any difficulties. Continue Rasagiline 1mg qd. Concur with physical therapy. Previous PD trials- CD-LD IR 25-100mg and Selegiline 5mg bid- ineffective, marked off-times. CD-=LD- ER Future considerations- trying Rytary, adjuncting w/ neupro patch or dopamine agonist, Follow-up in February as scheduled Medications: New carbidopa-levodopa 61.25-245 mg ER (Rytary) divide evenly over waking hours 2 caps PO QID 240 caps 0RF 30 days Discontinued carbidopa-levodopa 50-200 mg ER divide evenly over waking hours Discontinued Reason: Doctor's Order 1 tab PO QID 90 days 360 tabs 1RF Coding Level of Care Code Tele Est Pt Level 4 (28902) Diagnoses Parkinson's disease without dyskinesia G20.A1 Hypophonia R49.8 Dysphagia R13.10 Contracture of right hand M24.541
--- OUTSIDE RECORDS SUMMARY | 2025-01-30 09:09 | XMS_ITS ---
Author Organization [facility] Care Team Providers Care Rn Neurosurgical Name Role Phone Andrews Watt Unavailable Unavailable Norah Rondon Unavailable Unavailable Regina Castrejon Unavailable Unavailable Allergies and adverse reactions No Known Allergies Care Team Name Role Address Phone Organization Dates Andrews Watt PCP [address], [address], [place] (Office): : [facility] 07/19/2023 - 08/03/2023 Norah Rondon [address], [address], [place] (Office): : [facility] 07/19/2023 - 08/03/2023 Regina Castrejon 38 [facility] [address] [place] [address], [address], [place] (Office): [facility] 07/19/2023 - 08/03/2023 Immunizations Immunization Status Vaccine Details Vaccine Code CodeSystem Date Notes Influenza cancelled Influenza, split virus, trivalent, injectable, contains preservative 141 CVX created date: 09/05/2022 consent date: 09/05/2022 Educated by on 09/05/2022 SARS-COV-2 (COVID-19) cancelled SARS-COV-2 (COVID-19) vaccine, mRNA, spike protein, LNP, preservative free, 30 mcg/0.3mL dose, debbi-sucrose formulation 217 CVX created date: 06/30/2022 consent date: 06/30/2022 [employer] Covid-19 Bi-valent Solution cancelled SARS-COV-2 (COVID-19) vaccine, mRNA, spike protein, LNP, bivalent, preservative free, 30 mcg/0.3 mL dose, debbi-sucrose formulation 300 CVX created date: 09/05/2022 consent date: 09/05/2022 Educated by on 09/05/2022 Mental Status Section Date Assessment Total Score Description 08/03/2023 BIMS 12 moderate cognit joaquin impairment CAM 0 No delirium ind icated PHQ-9 00 07/23/2023 BIMS 12 moderate cognit joaquin impairment CAM 0 No delirium ind icated PHQ-9 00 Problems Problem # Description Date of onset Resolved Date Code CodeSystem Concern Status 1 BENIGN PROSTATIC HYPERPLASIA WITHOUT LOWER URINARY TRACT SYMPTOMS 07/19/[address] active 2 COGNITIVE COMMUNICATION DEFICIT 07/19/[address] active 3 DIFFICULTY IN WALKING, NOT ELSEWHERE CLASSIFIED 07/19/[address] active 4 DYSPHAGIA, OROPHARYNGEAL PHASE 07/19/[address] active 5 HYPERLIPIDEMIA, UNSPECIFIED 07/19/[address] active 6 HYPOKALEMIA 07/19/[address] active 7 OTHER LACK OF COORDINATION 07/19/[address] active 8 PARKINSON'S DISEASE WITHOUT DYSKINESIA, WITHOUT MENTION OF FLUCTUATIONS 07/19/[address] active 9 RESPIRATORY SYNCYTIAL VIRUS THE CAUSE OF DISEASES CLASSIFIED ELSEWHERE 07/19/[address] active 10 ACUTE KIDNEY FAILURE, UNSPECIFIED 08/26/19 23 07/19/[address] completed 11 ADULT FAILURE TO THRIVE 08/26/[address] active 12 ENCOUNTER FOR OBSERVATION FOR SUSPECTED EXPOSURE TO OTHER BIOLOGICAL AGENTS RULED OUT 08/26/19 23 07/19/[address] completed 13 HYPO-OSMOLALITY AND HYPONATREMIA 08/26/19 23 07/19/[address] completed 14 PARKINSON'S DISEASE 08/26/19 23 07/19/[address] completed 15 PERSONAL HISTORY OF COVID-19 08/26/19 23 07/19/[address] completed 16 SEPSIS, UNSPECIFIED ORGANISM 08/26/19 23 07/19/[address] completed 17 UNSPECIFIED PROTEIN-CALORIE MALNUTRITION 08/26/[address] active 18 BENIGN PROSTATIC HYPERPLASIA WITH LOWER URINARY TRACT SYMPTOMS 06/27/20 22 07/19/[address] completed 19 COVID-19 06/27/20 22 08/26/[address] completed 20 ESSENTIAL (PRIMARY) HYPERTENSION 06/27/[address] active 21 HISTORY OF FALLING 06/27/[address] active 22 PARKINSON'S DISEASE 06/27/20 22 08/26/[address] completed 23 UNSPECIFIED PROTEIN-CALORIE MALNUTRITION 06/27/20 22 08/26/[address] completed 24 UNVACCINATED FOR COVID-19 06/27/[address] active Reason for Referral No Reasons for Referral Entered Social History Social History Observation Description Start Date End Date Code Code System Current Smoking Status Tobacco smoking consumption unknown 565344068 SNOMED CT Sex Assigned At Male 1950 93163-0 [facility] Gender Identity Vital Signs Code Code System Vitals Name Values and Units Timing Information 28749-3 [facility] Pain Level Value=0.0 08/03/2023 77252-8 [facility] Weight Efxcu=899.7 Units=Lbs 04/2024 9279-1 [facility] Respiratory Rate Value=18.0 Units=/m in 07/25/2023 23840-6 [facility] O2 % dC Oximetry Value=96.0 Units= % 07/25/2023 8462-4 [facility] Blood Pressure-Diastolic Value=90 Un its=mmHg 07/25/2023 8480-6 [facility] Blood Pressure-Systolic Jcfbu=356 Un its=mmHg 07/25/2023 8310-5 [facility] Body Temperature Value=97.8 Units= F 07/25/2023 8867-4 [facility] Heart rate Value=87.0 Units=/min 12/2023 8302-2 [facility] Height Value=65.0 Units=Inches 07/19/2023
--- OUTSIDE RECORDS SUMMARY | 2025-01-30 09:09 | XMS_ITS | Encounter Summary ---
Author Organization [facility] Address [address] [place] [address] Care Team Providers Care Toll Line Repairer Name Role Phone Tanner Ya MD Primary Care Provider [phone] Encounter Details Date Type Department Care Team (Late st Contact Info) Description 05/24/2024 Lab Requisition [facility] - Main Lab [address] [place] [address] Tanner Ya MD [address] [place] [address] Parkinsonism, unspecified (CMS/HCC V24, CMS/HCC V28) Social History Tobacco Use Types Packs/Day Years Used Date Smoking Tobacco: Never Assessed Sex and Gender Information Value Date Recorded Sex Assigned at Not on file Legal Sex Male 8:13 PM EST Gender Identity Not on file Sexual Orientation Not on file documented as of this encounter Plan of Treatment Not on file documented as of this encounter Procedures Procedure Name Priority Date/Time Associated Diagnosis Comments TRAVEL PHLEBOTOMY FEE Routine 05/24/2024 5:04 AM EST Parkinsonism, unspecified (CMS/HCC) COMPLETE BLOOD COUNT Routine 05/24/2024 5:04 AM EST Parkinsonism, unspecified (CMS/HCC) BASIC METABOLIC PANEL Routine 05/24/2024 5:04 AM EST Parkinsonism, unspecified (CMS/HCC) documented in this encounter Results * Travel phlebotomy fee (05/24/2024 5:04 AM EST) [facility] TRAVEL PHLEBOTOMY FEE Completed 05/24/2024 1:02 PM EST [facility] Blood Venous blood specimen / Unknown Venipuncture / Unknown 05/24/2024 5:04 AM EST 05/24/2024 12:55 PM EST us Tanner Ya MD LAB BLOOD ORDERABLES Final Resu lt [facility] [address] [place] [address], * (ABNORMAL) Basic metabolic panel (05/24/2024 5:04 AM EST) Sodium 139 133 - 145 mmol/L LAB CHEMISTRY METHOD 05/24/2024 3:13 PM [facility] Potassium 3.9 3.5 - 5.5 mmol/L LAB CHEMISTRY METHOD 05/24/2024 3:13 PM [facility] Chloride 106 96 - 110 mmol/L LAB CHEMISTRY METHOD 05/24/2024 3:13 PM [facility] CO2 26 21 - 32 mmol/L LAB CHEMISTRY METHOD 05/24/2024 3:13 PM [facility] Anion Gap 7 3 - 11 LAB CHEMISTRY METHOD 05/24/2024 3:13 PM [facility] Glucose 64(L) 70 - 100 mg/dL LAB CHEMISTRY METHOD 05/24/2024 3:13 PM [facility] BUN 15 5 - 25 mg/dL LAB CHEMISTRY METHOD 05/24/2024 3:13 PM [facility] Creatinine 0.70 0.70 - 1.30 mg/dL LAB CHEMISTRY METHOD 05/24/2024 3:13 PM [facility] eGFR 97 >=60 mL/min/1. 73m2 LAB CHEMISTRY METHOD 05/24/2024 3:13 PM [facility] Comment:Calculation based on the Chronic Kidney Disease Epidemiology Collaboration (CKD-EPI) equation refit without adjustment for race. BUN/Creatinine Ratio 21.4 LAB CHEMISTRY METHOD 05/24/2024 3:13 PM [facility] Calcium 9.0 8.5 - 10.5 mg/dL LAB CHEMISTRY METHOD 05/24/2024 3:13 PM [facility] Blood Venous blood specimen / Unknown Venipuncture / Unknown 05/24/2024 5:04 AM EST 05/24/2024 12:55 PM EST us Tanner Ya MD LAB BLOOD ORDERABLES Final Resu lt [facility] [address] [place] [address], [place] [phone] * (ABNORMAL) Complete blood count (05/24/2024 5:04 AM EST) WBC 5.3 4.8 - 10.8 K/mcL LAB HEMETOLOGY METHOD 05/24/2024 1:35 PM [facility] RBC 4.20(L) 4.50 - 5.50 M/mcL LAB HEMETOLOGY METHOD 05/24/2024 1:35 PM [facility] Hemoglobin 13.0(L) 13.5 - 17.5 g/dL LAB HEMETOLOGY METHOD 05/24/2024 1:35 PM [facility] Hematocrit 40.4(L) 42.0 - 54.0 % LAB HEMETOLOGY METHOD 05/24/2024 1:35 PM [facility] MCV 97.1 79.0 - 98.0 FL LAB HEMETOLOGY METHOD 05/24/2024 1:35 PM [facility] MCH 31.3 27.0 - 32.0 pcg LAB HEMETOLOGY METHOD 05/24/2024 1:35 PM [facility] MCHC 32.2 32.0 - 37.0 g/dL LAB HEMETOLOGY METHOD 05/24/2024 1:35 PM EST [facility] RDW 12.9 11.0 - 15.0 % LAB HEMETOLOGY METHOD 05/24/2024 1:35 PM EST [facility] Platelets 247 130 - 400 K/mcL LAB HEMETOLOGY METHOD 05/24/2024 1:35 PM EST [facility] MPV 10.2 7.0 - 11.0 FL LAB HEMETOLOGY METHOD 05/24/2024 1:35 PM EST [facility] NRBC 0.0 <1.0 % LAB HEMETOLOGY METHOD 05/24/2024 1:35 PM EST [facility] NRBC Absolute 0.00 <0.10 K/mcL LAB HEMETOLOGY METHOD 05/24/2024 1:35 PM EST [facility] Blood Venous blood specimen / Unknown Venipuncture / Unknown 05/24/2024 5:04 AM EST 05/24/2024 12:55 PM EST us Tanner Ya MD LAB BLOOD ORDERABLES Final Resu lt [facility] [address] [place] [address], documented in this encounter Visit Diagnoses Diagnosis Parkinsonism, unspecified (CMS/HCC V24, CMS/HCC V28) documented in this encounter Additional Health Concerns Infection Onset Date Last Indicated Resolved Time Respiratory Rule-Out 08/18/2024 08/17/2024 025 2:31 PM EST documented as of this encounter Care Teams Toll Line Repairer Relationship Specialty Start Date End Date Tanner Ya MD [address] [place] [address] PCP - General Internal Medicine 08/18/24 documented as of this encounter
== END 2025-01-30 10:14 | disposition home or self-care (01) ==
PROVIDERS: PCP Internal Medicine; Visit Provider Nurse Practitioner Family
DX: G20.A1 Parkinson's disease without dyskinesia, without mention of fluctuations (principal); R49.8 Other voice and resonance disorders; R13.10 Dysphagia, unspecified; M24.541 Contracture, right hand
CPT/HCPCS: 99214